=== PATIENT | male | born 1990 | race Caucasian/White ===

== ENCOUNTER 2017-11-13 14:45 | Emergency (ER) | payer OTHER ==
[~2017-11-13] VITALS: Ht 167.6 cm; Wt 76.7 kg
[2017-11-13 14:56] VITALS: Ht 167.6 cm; Wt 76.7 kg
[2017-11-13 16:03] VITALS: BP 125/82
== END 2017-11-13 16:03 | disposition home or self-care (01) ==
LOC: ED 14:45
DX: S01.112A Laceration without foreign body of left eyelid and periocular area, initial encounter (principal); X58.XXXA Exposure to other specified factors, initial encounter; Y93.89 Activity, other specified; Y92.89 Other specified places as the place of occurrence of the external cause; Y99.8 Other external cause status
CPT/HCPCS: J2001

== ENCOUNTER 2017-11-20 13:14 | Emergency (ER) | payer OTHER ==
[~2017-11-20] VITALS: Ht 167.6 cm; Wt 78.0 kg
[2017-11-20 13:19] VITALS: Ht 167.6 cm; Wt 78.0 kg
[2017-11-20 13:29] VITALS: BP 132/76
== END 2017-11-20 13:29 | disposition home or self-care (01) ==
LOC: ED 13:14
DX: S01.81XD Laceration without foreign body of other part of head, subsequent encounter (principal); X58.XXXD Exposure to other specified factors, subsequent encounter